=== PATIENT | male | born 1965 | race Caucasian/White ===

== ENCOUNTER 2017-03-30 18:24 | Observation (INO) ==
[2017-03-30] MEDS ORDERED: Ketorolac 15 MG/ML VIAL IM ONE (18:36)
--- NOTE | 2017-03-30 18:40 | Emergency Department Note ---
Disposition Clinical Impression: Epigastric pain, RUQ abdominal pain, Biliary colic Cholelithiasis Qualifiers: Cholelithiasis location: other site Biliary obstruction: without biliary obstruction Qualified Code(s): K80.80 - Other cholelithiasis without obstruction Disposition: Admitted As Inpatient Condition: Good Instructions: Biliary Colic (ED), Abdominal Pain (ED) Referrals: Kennedy Mathews MD [Primary Care Provider] - Julian Thurston MD [Partnered Physician] - Forms: ED Satisfaction Letter, Work/School Release Time of Disposition: 20:06 Abdominal Pain HPI - General Chief Complaint: ED Abdominal Pain Stated Complaint: abd pain Time Seen by Provider: 03/30/17 18:29 Source: patient Mode of arrival: ambulatory Limitations: no limitations Nursing Notes Reviewed: Yes Vital Signs Reviewed: Yes - History of Present Illness HPI Narrative: Patient is a 51-year-old male with past medical history of gallstones, diverticulitis. He presents today due to epigastric and right upper quadrant pain that started about 4 hours prior to arrival. He states that the pain radiates to his back. Admits to nausea, subjective fever and chills, mild sweating. He admits to shortness of breath due to pain. Denies any overt chest pain. He states that he has had similar pain to this with previous biliary colic. He did not take any medication prior to coming in. Pain Scale: 8 - Related Data Home Medications Medication Instructions Recorded Confirmed Dextroamphetamine/Amphetamine 10 mg PO QAM 08/23/16 08/23/16 [Dextroamp-Amphetamin 10 mg Tab] Meloxicam [Meloxicam] 15 mg PO DAILY 08/23/16 08/23/16 Allergies Allergy/AdvReac Type Severity Reaction Status Date / Time No Known Allergies Allergy Verified 03/30/17 18:27 All systems ED: reviewed and negative except as stated. Constitutional: Reports: fever (Subjective), chills Cardiovascular: Denies: chest pain Respiratory: Reports: dyspnea Gastrointestinal: Reports: abdominal pain, nausea. Denies: vomiting, diarrhea, constipation, hematemesis, melena, hematochezia Musculoskeletal: Reports: back pain Neurological: Denies: headache, weakness, numbness, paresthesias Abdominal Pain PMH - Past Medical History Medical history: Reports: other Male Surgical History: Reports: non-contributory Psychiatric history: Reports: ADHD - Social History Smoking status: Never smoker Alcohol use: Reports: none Drug use: Reports: none Physical Exam - General Limitations: no limitations General appearance: alert, other (Appears uncomfortable, holding epigastric area ) - Head Head exam: atraumatic, normocephalic, normal inspection - Eye Eye exam: Present: normal appearance, PERRL, EOMI - ENT ENT exam: normal exam, normal oropharynx, mucous membranes moist - Neck Neck exam: Present: normal inspection, full ROM, trachea midline - Chest Chest inspection: Present: normal inspection, symmetric chest wall rise. Absent : tenderness - Respiratory Respiratory exam: Present: normal lung sounds bilaterally. Absent: respiratory distress, wheezes, stridor - Cardiovascular Cardiovascular exam: Present: regular rate, normal rhythm, normal heart sounds - Abdominal Exam Abdominal exam: Present: soft, tenderness (Mild to moderate tenderness in the epigastric and right upper quadrant regions). Absent: distention, guarding, rebound, rigidity - Extremities Exam Extremities exam: Present: normal inspection, full ROM. Absent: tenderness, pedal edema - Back Exam Back exam: Absent: CVA tenderness (R), CVA tenderness (L) - Neurological Exam Neurological exam: Present: alert, oriented X3 - Psychiatric Psychiatric exam: Present: anxious - Skin Skin exam: Present: warm, dry, intact, normal color Course Course Narrative: Patient hypertensive. Otherwise, the rest of the vitals within normal limits. Physical exam shows mild to moderate tenderness in the epigastric and right upper quadrant areas. He does have a history of biliary colic and diverticulitis. We will give the patient Toradol and morphine for pain control. We will perform basic abdominal labs including LFTs, lipase. We will also obtain CBC, BMP, troponin, chest x-ray, EKG in case this is cardiac in etiology referring pain down to the epigastric region. 19:43 Patient had continued pain despite morphine and toradol, he was given an additional dose of fentanyl and ativan by Dr. Campos. Currently waiting on labs and CT abd pelvis. 20:02 EKG shows NSR with no acute ST changes. white blood cell count 11.4. BMP not concerning. LFTs within normal limits, lipase normal. Urinalysis negative for UTI. Currently waiting on abdominal CT scan results. 20:21 CT scan shows 2.3 cm calcified stone within the gallbladder neck. I spoke with Dr. sinning per request of the patient as he has seen him in the past for biliary colic. Due to no major elevation in WBC, no elevation in LFTs , no fever, he did not feel patient needed acute intervention. He was agreeable to be consult if patient was admitted to medicine for pain control and he will see patient in the afternoon tomorrow for assessment. Chest X-Ray 03/30/17 18:37 IMPRESSION: No acute process. D/ / Elian Lane MD / Elian Lane MD Interpreting Provider: Elian Lane MD Abdomen/Pelvis CT 03/30/17 19:14 IMPRESSION: 2.3 cm calcified stone within the gallbladder neck. Otherwise unremarkable study. D/ / Ila Grady Cha, MD / Ila Grady Cha, MD Interpreting Provider: Ila Grady Cha, MD Chest X-Ray 03/30/17 18:37 IMPRESSION: No acute process. D/ / Elian Lane MD / Elian Lane MD Interpreting Provider: Elian Lane MD Vital Signs Temperature 0 F L 03/30/17 18:25 Pulse Rate 69 03/30/17 18:25 Respiratory Rate 18 03/30/17 18:25 Blood Pressure 166/116 03/30/17 18:25 O2 Sat by Pulse Oximetry 100 03/30/17 18:25 Temperature 97.7 F 03/30/17 19:15 Pulse Rate 77 03/30/17 20:04 Respiratory Rate 16 03/30/17 20:04 Blood Pressure 166/116 03/30/17 18:25 O2 Sat by Pulse Oximetry 97 03/30/17 20:04 Oxygen Delivery Oxygen Delivery Room Air Abdominal Pain - MDM Narrative Medical decision making narrative: Patient hypertensive. Otherwise, the rest of the vitals within normal limits. Physical exam shows mild to moderate tenderness in the epigastric and right upper quadrant areas. He does have a history of biliary colic and diverticulitis. We will give the patient Toradol and morphine for pain control. We will perform basic abdominal labs including LFTs, lipase. We will also obtain CBC, BMP, troponin, chest x-ray, EKG in case this is cardiac in etiology referring pain down to the epigastric region. 19:43 Patient had continued pain despite morphine and toradol, he was given an additional dose of fentanyl and ativan by Dr. Campos. Currently waiting on labs and CT abd pelvis. 20:02 EKG shows NSR with no acute ST changes. white blood cell count 11.4. BMP not concerning. LFTs within normal limits, lipase normal. Urinalysis negative for UTI. Currently waiting on abdominal CT scan results. 20:21 CT scan shows 2.3 cm calcified stone within the gallbladder neck. I spoke with Dr. kan per request of the patient as he has seen him in the past for biliary colic. Due to no major elevation in WBC, no elevation in LFTs , no fever, he did not feel patient needed acute intervention. He was agreeable to be consult if patient was admitted to medicine for pain control and he will see patient in the afternoon tomorrow for assessment. - Medical Records Medical records reviewed: Yes I reviewed the patient's medical records. - Lab Data Lab results reviewed: Yes I reviewed the patient's lab results. Result diagrams: 03/30/17 19:23 03/30/17 19:23 Lab Results 03/30/17 03/30/17 03/30/17 Range/Units 18:37 19:23 19:23 WBC 11.4 H (4.3-11.1) K/mcL RBC 5.41 (4.19-5.50) M/mcL Hgb 15.9 (12.9-16.9) g/dL Hct 45.7 (37.5-50.1) % MCV 84.5 (83.0-100.0) fL MCH 29.4 (28.0-33.3) pg MCHC 34.8 (31.6-35.5) g/dL RDW 12.8 (11.5-14.5) % Plt Count 222 (140-400) K/mcL MPV 10.1 (9.4-12.4) fL Immature Gran % 0.3 (0-4) % Seg Neutrophils % 87.0 % Lymphocytes % 7.2 % Monocytes % 4.9 % Eosinophils % 0.3 % Basophils % 0.3 % Neutrophils # 9.9 H (1.6-8.9) K/mcL Lymphocytes # 0.8 (0.6-4.6) K/mcL Monocytes # 0.6 (0.0-1.3) K/mcL Eosinophils # 0.0 (0.0-0.6) K/mcL Basophils # 0.0 (0.0-0.2) K/mcL PT 11.8 (9.4-12.1) Seconds INR 1.1 APTT 29.4 (26.0-36.0) Seconds Sodium (136-145) mEq/L Potassium (3.5-5.1) mEq/L Chloride (98-107) mEq/L Carbon Dioxide (23-29) mEq/L BUN (6-20) mg/dL Creatinine (0.70-1.30) mg/dL Est GFR ( Amer) (> 60) Est GFR (Non-Af Amer) (> 60) BUN/Creatinine Ratio (6-26) Glucose (70-105) mg/dL Calculated Osmolality (280-300) Calcium (8.6-10.3) mg/dL Total Bilirubin (0.3-1.0) mg/dL Direct Bilirubin (0.0-0.2) mg/dL Indirect Bilirubin (0.0-1.2) mg/dL AST (13-39) Units/L ALT (7-52) Units/L Alkaline Phosphatase (34-104) Units/L Troponin I (< 0.04) ng/mL Serum Total Protein (6.4-8.9) g/dL Albumin (3.5-5.7) g/dL Globulin (2.4-3.5) g/dL Albumin/Globulin Ratio (1.1-2.2) Lipase (11-82) Units/L Urine Color Yellow (Yellow) Urine Clarity Turbid A (Clear) Urine pH 7.5 (5.0-8.0) pH Units Ur Specific [place] 1.028 H (1.010-1.025) Urine Protein Trace (Neg-Trace) mg/dL Urine Glucose (UA) Normal (Normal) mg/dL Urine Ketones Negative (Negative) mg/dL Urine Blood Negative (Negative) Urine Nitrite Negative (Negative) Urine Bilirubin Negative (Negative) Urine Urobilinogen Normal (Normal) mg/dL Ur Leukocyte Esterase Negative (Negative) Urine Microscopic RBC 5-15 H (0-3) per hpf Urine Microscopic WBC 0-3 (0-3) per hpf Ur Squamous Epith Cells Moderate H (None-Few) per lpf Urine Bacteria None Seen (None-Few) per hpf Hyaline Casts None Seen (None-Few) per lpf Ur Culture Indicated? NO (NO) 03/30/17 03/30/17 Range/Units 19:23 19:23 WBC (4.3-11.1) K/mcL RBC (4.19-5.50) M/mcL Hgb (12.9-16.9) g/dL Hct (37.5-50.1) % MCV (83.0-100.0) fL MCH (28.0-33.3) pg MCHC (31.6-35.5) g/dL RDW (11.5-14.5) % Plt Count (140-400) K/mcL MPV (9.4-12.4) fL Immature Gran % (0-4) % Seg Neutrophils % % Lymphocytes % % Monocytes % % Eosinophils % % Basophils % % Neutrophils # (1.6-8.9) K/mcL Lymphocytes # (0.6-4.6) K/mcL Monocytes # (0.0-1.3) K/mcL Eosinophils # (0.0-0.6) K/mcL Basophils # (0.0-0.2) K/mcL PT (9.4-12.1) Seconds INR APTT (26.0-36.0) Seconds Sodium 140 (136-145) mEq/L Potassium 3.4 L (3.5-5.1) mEq/L Chloride 107 (98-107) mEq/L Carbon Dioxide 26 (23-29) mEq/L BUN 19 (6-20) mg/dL Creatinine 0.89 (0.70-1.30) mg/dL Est GFR ( Amer) > 60 (> 60) Est GFR (Non-Af Amer) > 60 (> 60) BUN/Creatinine Ratio 21 (6-26) Glucose 111 H (70-105) mg/dL Calculated Osmolality 293 (280-300) Calcium 9.3 (8.6-10.3) mg/dL Total Bilirubin 0.6 (0.3-1.0) mg/dL Direct Bilirubin 0.1 (0.0-0.2) mg/dL Indirect Bilirubin 0.5 (0.0-1.2) mg/dL AST 17 (13-39) Units/L ALT 26 (7-52) Units/L Alkaline Phosphatase 70 (34-104) Units/L Troponin I < 0.03 (< 0.04) ng/mL Serum Total Protein 6.7 (6.4-8.9) g/dL Albumin 4.1 (3.5-5.7) g/dL Globulin 2.6 (2.4-3.5) g/dL Albumin/Globulin Ratio 1.6 (1.1-2.2) Lipase 43 (11-82) Units/L Urine Color (Yellow) Urine Clarity (Clear) Urine pH (5.0-8.0) pH Units Ur Specific [place] (1.010-1.025) Urine Protein (Neg-Trace) mg/dL Urine Glucose (UA) (Normal) mg/dL Urine Ketones (Negative) mg/dL Urine Blood (Negative) Urine Nitrite (Negative) Urine Bilirubin (Negative) Urine Urobilinogen (Normal) mg/dL Ur Leukocyte Esterase (Negative) Urine Microscopic RBC (0-3) per hpf Urine Microscopic WBC (0-3) per hpf Ur Squamous Epith Cells (None-Few) per lpf Urine Bacteria (None-Few) per hpf Hyaline Casts (None-Few) per lpf Ur Culture Indicated? (NO) - Radiology Data Radiology results reviewed: Yes I reviewed the patient's radiology results. Chest X-Ray 03/30/17 18:37 IMPRESSION: No acute process. D/ / Elian Lane MD / Elian Lane MD Interpreting Provider: Elian Lane MD Abdomen/Pelvis CT 03/30/17 19:14 IMPRESSION: 2.3 cm calcified stone within the gallbladder neck. Otherwise unremarkable study. D/ / Ila Grady Cha, MD / Ila Grady Cha, MD Interpreting Provider: Ila Grady Cha, MD - EKG Data EKG attestation: Yes I reviewed and interpreted this EKG. EKG results narrative: Normal sinus rhythm. Rate 76. [place] 179. QRS 97. QTC 416. Normal axis. No acute ST elevation or depression. There is 1 PVC present on EKG. EKG performed on 03/30/2017 18:48 [facility] Situation: Demographics, MOA Background: Presenting Complaint, Relevant PMH, Meds, & Allergies Assessment: Vital Signs, Course and respsone to treatment, Exam Concerns, Patient/Family Expectation, Pertinant Lab Results, Outstanding Labs Recommendation: Barrier(s) to disposition, Recommendation based on pending studies, treatments, or consults [facility] Report Given to: Dr. Nitish Rosales Repor Time: 21:03 Attestation Statement - Attestation Attestation: I examined this patient and my medical decision-making was reviewed with the Resident Physician. I agree with the documented findings, disposition and treatment plan as described except to the extent set forth below. Possible biliary colic. We will obtain CT scan to evaluate other acute pathologies. We will obtain laboratory analyses. Final disposition pending results of laboratory analyses as well as advanced imaging.
[2017-03-30 18:47] LABS: Bilirubin,Urine Negative (Negative); Blood,Urine Negative (Negative); Clarity,Urine Turbid (Clear); Color,Urine Yellow (Yellow); Glucose,Urine (UA) Normal (Normal); Ketones,Urine Negative (Negative); Leukocyte Esterase,Urine Negative (Negative); Nitrite,Urine Negative (Negative); PH,Urine 7.5 pH Units (5.0-8.0); Protein,Urine Trace mg/dL (Neg-Trace); Specific Gravity,Urine 1.028 (1.010-1.025); Urobilinogen,Urine Normal (Normal)
[2017-03-30 18:49] LABS: Bacteria,Urine None Seen per hpf (None-Few); Hyaline Casts,Urine None Seen per lpf (None-Few); Squamous Epithelial Cell,Urine Moderate per lpf (None-Few); WBC,Urine 0-3 per hpf (0-3)
[2017-03-30] MEDS ORDERED: *HR* Morphine Immed Rel 30 MG TABLET PO ONE (18:59)
[2017-03-30] MEDS ORDERED: *HR* LORazepam 2 MG/ML VIAL IVP ONE (19:23)
[2017-03-30] MEDS ORDERED: *HR* FentaNYL (PF) 100 MCG/2 ML VIAL IVP ONE (19:23)
[2017-03-30 19:30] LABS: Basophils % 0.3 %; Eosinophils % 0.3 %; Hematocrit 45.7 % (37.5-50.1); Hemoglobin 15.9 g/dL (12.9-16.9); Immature Granulocytes % 0.3 % (0-4); Lymphocytes # 0.8 K/mcL (0.6-4.6); Lymphocytes % 7.2 %; Mean Corpuscular HGB Conc 34.8 g/dL (31.6-35.5); Mean Corpuscular Hemoglobin 29.4 pg (28.0-33.3); Mean Corpuscular Volume 84.5 fL (83.0-100.0); Mean Platelet Volume 10.1 fL (9.4-12.4); Monocytes # 0.6 K/mcL (0.0-1.3); Monocytes % 4.9 %; Neutrophils # 9.9 K/mcL (1.6-8.9); Platelet Count 222 K/mcL (140-400); Red Blood Count 5.41 M/mcL (4.19-5.50); Red Cell Distribution Width 12.8 % (11.5-14.5)
[2017-03-30 19:36] LABS: INR 1.1; Prothrombin Time 11.8 Seconds (9.4-12.1)
[2017-03-30 19:38] LABS: Activated Partial Thrombo Time 29.4 Seconds (26.0-36.0)
[2017-03-30 19:46] LABS: Alanine Aminotransferase 26 Units/L (7-52); Albumin 4.1 g/dL (3.5-5.7); Albumin/Globulin Ratio 1.6 (1.1-2.2); Alkaline Phosphatase 70 Units/L (34-104); Aspartate Amino Transferase 17 Units/L (13-39); BUN/Creatinine Ratio 21 (6-26); Bilirubin,Direct 0.1 mg/dL (0.0-0.2); Bilirubin,Indirect 0.5 mg/dL (0.0-1.2); Bilirubin,Total 0.6 mg/dL (0.3-1.0); Blood Urea Nitrogen 19 mg/dL (6-20); Calcium 9.3 mg/dL (8.6-10.3); Carbon Dioxide 26 mEq/L (23-29); Chloride 107 mEq/L (98-107); Globulin 2.6 g/dL (2.4-3.5); Glucose 111 mg/dL (70-105); Lipase 43 Units/L (11-82); Osmolality,Calculated 293 (280-300); Potassium 3.4 mEq/L (3.5-5.1); Sodium 140 mEq/L (136-145); Total Protein 6.7 g/dL (6.4-8.9); eGFR For African Americans > 60 (> 60); eGFR For Non-African Americans > 60 (> 60)
[2017-03-30] MEDS ORDERED: OXYCODONE Oral CONC 10 MG/0.5 ML ORAL.SYG SL PRN (21:42)
[2017-03-30] MEDS ORDERED: Ketorolac 30 MG/ML VIAL IVP PRN (21:42)
[2017-03-30] MEDS ORDERED: 0.9 % Sodium Chloride 1,000 ML IVC SCH (21:45)
[2017-03-31] MEDS ORDERED: traMADol 50 MG TABLET PO PRN (00:26)
[2017-03-31] MEDS ORDERED: Acetaminophen 325 MG TABLET PO PRN (00:26)
[2017-03-31] MEDS ORDERED: *HR* OxyCODONE Immed Rel 5 MG TABLET PO PRN (00:26)
[2017-03-31] MEDS ORDERED: Naloxone 0.4 MG/ML INJ IVP PRN (00:26)
[2017-03-31] MEDS ORDERED: 0.9 % Sodium Chloride 1,000 ML IVC SCH (00:34)
[2017-03-31] MEDS: MetroNIDAZOLE 500 MG/100 ML 500 MG/100 ML BAG IVPB SCH ×2 (00:38→08:47)
--- NOTE | 2017-03-31 01:21 | Internal Med History&Physical ---
<Dez Gamble - Last Filed: 03/31/17 01:30> Date of Encounter: 03/31/17 Time of Encounter: 00:00 Assessment and Plan (1) RUQ abdominal pain Current visit: Yes Status: Acute Known cholelithiasis; does not appear to be obstructing; no apparent cholangitis /choledocholithiasis/cholecystitis LFTs wnl with no evidence of biliary stasis ED assessed for atypical angina which is unlikely given history and ancillary data Dr. Lopez consulted by ED; await further recommendations Control pain and cont IVF/IV-Cipro/Flagyl RUQ U/S pending (2) Cholelithiasis Current visit: Yes Status: Acute No ductal dilatation or signs of cholecystitis/cholangitis 2.3cm stone visualized in GB neck per CT Other plans as above Qualifiers: Cholelithiasis location: gallbladder Biliary obstruction: without biliary obstruction (3) Hypertension Current visit: Yes Status: Chronic Elevated SBP improved with pain control Patient takes HCTZ at home; will hold for now Qualifiers: Hypertension type: unspecified Qualified Code(s): I10 - Essential (primary ) hypertension (4) DVT prophylaxis Current visit: Yes Status: Acute Ambulate TID May consider Rx vs SCDs if stay >24hrs Internal Medicine - H&P: HPI Chief complaint: severe abdominal pain Admitted From: Emergency Dept Plans for Post Hospital Care: Home History of present illness: Mr. Carter is a 51 year old male with known history of cholelithiasis who is admitted via ED for severe abdominal pain. Pain began this AM while at a basketball game after eating a bratwurst and a pretzel. Patient later had lunch after which severity became significantly worse. Pain is 8/10 at max, crampy/sharp in character, radiates to mid back, and appears to worsen with meals. Has had similar episodes in the past, but none this painful. Patient tried to relieve the pain with induced emesis without improvement. Denies fevers, diaphoresis, myalgias, palpitations, chest pain, ongoing shortness of breath, nausea, hematemesis, diarrhea, melena, hematochezia, dysuria, flank pain , hematuria, or testicular pain. Pain was initially difficult to control in ED ultimately improving with Fentanyl. Labs were essentially negative (including CBC/troponin/LFTs/Lipase) except for borderline low potassium. CXR negative. CT abd/pelvis showed non- obstructing 2.3cm stone within the gallbladder neck without any signs of pericholecystic change/inflammation. Patient started on IVF and IV Cipro/ Flagyl. ED spoke with Dr. Lopez who states would see patient as consult. Pain is well controlled on initial encounter. Patient explicitly states FULL CODE status. Past Med Surg Social Fam HX - Past Medical History Attestation: Yes The following information was validated with the patient. Source: patient Medical history: hypertension, other Psychiatric history: ADHD - Past Surgical History Surgical History: other - Social History Smoking Status: Never smoker Alcohol use: none Drug use: none Internal Medicine - H&P: Meds Dextroamphetamine/Amphetamine [Dextroamp-Amphetamin 10 mg Tab] 10 mg PO QAM [History] Meloxicam [Meloxicam] 15 mg PO DAILY 08/23/16 [History] 3 Allergy/AdvReac Type Severity Reaction Status Date / Time No Known Allergies Allergy Verified 03/30/17 18:27 All Systems PM: A 10-system review of systems was performed and is negative for pertinent findings except as documented above in the HPI. - Constitutional Vitals: Temp Pulse Resp BP Pulse Ox 98.4 F 88 16 141/97 94 03/30/17 22:36 03/30/17 22:36 03/30/17 22:36 03/30/17 22:36 03/30/17 22:36 Exam: CONSTITUTIONAL: Alert and oriented X3, well-nourished, well appearing, in no apparent distress HEAD: Normocephalic; atraumatic. EYES: PERRL, no scleral icterus, no drainage, no conjunctival injection NOSE: The nose is normal in appearance without rhinorrhea Oropharynx: pink/moist, no tonsillar edema/erythema/exudates RESP: NRD without use of accessory musculature, CTA b/l with no wheezes/rales/ rhonchi CARD: Regular rhythm, without murmurs, rubs, or gallop ABD: grossly normal, soft, mild tenderness to RUQ with negative Laguerre sign; no peritoneal signs; no rebound/rigidity/guarding/distention SKIN: normal appearance, no pallor/diaphoresis,mottling,jaundice,cyanosis EXT: DP/Rad pulses 2+ and symmetrical; no lateralizing edema; no other lesions seen PSYCH: appropriate mood/affect Internal Med - H&P Results - Labs CBC & Chem 7: 03/30/17 19:23 03/30/17 19:23 <Christian Talbert - Last Filed: 03/31/17 05:35> Date of Encounter: 03/31/17 Internal Medicine - H&P: HPI History of present illness: Mr. Carter is a 51 year old male All Systems PM: A 10-system review of systems was performed and is negative for pertinent findings except as documented above in the HPI. - Constitutional Vitals: Temp Pulse Resp BP Pulse Ox 97.9 F 79 15 151/79 98 03/31/17 05:02 03/31/17 05:02 03/31/17 05:02 03/31/17 05:02 03/31/17 05:02 Internal Med - H&P Results - Labs CBC & Chem 7: 03/30/17 19:23 03/30/17 19:23 - Attending Attestation I have seen and examined this pt independently. I have discussed with Resident physician Dr Gamble regarding the management plan. Agree with the documentation. Will give cipro and flagyl for possible early cholecystitis considering persist pain and elevated WBC.
[2017-03-31 06:05] LABS: Basophils % 0.5 %; Eosinophils # 0.1 K/mcL (0.0-0.6); Eosinophils % 1.7 %; Hemoglobin 14.8 g/dL (12.9-16.9); Immature Granulocytes % 0.3 % (0-4); Lymphocytes # 1.7 K/mcL (0.6-4.6); Lymphocytes % 22.2 %; Mean Corpuscular HGB Conc 33.6 g/dL (31.6-35.5); Mean Corpuscular Hemoglobin 28.9 pg (28.0-33.3); Mean Corpuscular Volume 85.9 fL (83.0-100.0); Mean Platelet Volume 10.5 fL (9.4-12.4); Monocytes # 0.7 K/mcL (0.0-1.3); Monocytes % 9.8 %; Platelet Count 164 K/mcL (140-400); Red Blood Count 5.12 M/mcL (4.19-5.50); Red Cell Distribution Width 12.8 % (11.5-14.5); Segmented Neutrophils % 65.5 %
[2017-03-31 06:51] LABS: Alanine Aminotransferase 22 Units/L (7-52); Albumin 3.5 g/dL (3.5-5.7); Albumin/Globulin Ratio 1.5 (1.1-2.2); Alkaline Phosphatase 56 Units/L (34-104); Aspartate Amino Transferase 17 Units/L (13-39); BUN/Creatinine Ratio 26 (6-26); Bilirubin,Total 0.7 mg/dL (0.3-1.0); Blood Urea Nitrogen 16 mg/dL (6-20); Calcium 8.3 mg/dL (8.6-10.3); Carbon Dioxide 25 mEq/L (23-29); Chloride 109 mEq/L (98-107); Globulin 2.3 g/dL (2.4-3.5); Glucose 96 mg/dL (70-105); Magnesium 2.1 mg/dL (1.6-2.6); Osmolality,Calculated 289 (280-300); Potassium 3.7 mEq/L (3.5-5.1); Sodium 139 mEq/L (136-145); Total Protein 5.8 g/dL (6.4-8.9); eGFR For African Americans > 60 (> 60); eGFR For Non-African Americans > 60 (> 60)
[2017-03-31 10:50] VITALS: BP 141/91
--- NOTE | 2017-03-31 13:03 | General Surgery Consult Note ---
Date of Encounter: 03/31/17 Time of Encounter: 12:30 History of Present Illness Consult date: 03/30/17 Reason for consult: gallstones Requesting physician: Jack Alcantar History of present illness: 51 yo, referred to [facility] at the request of the patient after presenting to [facility] ED with abrupt onset epigastric and right upper quadrant pain. This was not accompanied by any N/V, fever, chills, or jaundice. Patient with known history cholelithiasis with severe episode biliary colic approx 6 years agol. The patient denies any significant episodes abd pain since that acute episode in 2010 til now. On presentation to the emergency department the patient was in acute distress and somewhat diaphoretic, most likely due to the abdominal pain, but remained hemodynamically stable and afebrile. Labs were notable for a mild leukocytosis of 11.4 (upper limits of normal 11.1) hemoglobin 15.9, hematocrit 45.7, platelet count 220,000. Neutrophils were mildly elevated at 9.9% (upper limits of normal 8.9%). Electrodes were notable for potassium 3.4, LFTs were within normal limits. Troponin less than 0.03. The patient required considerable medication on an initial presentation to control his pain but since then his pain has abated. On my presentation to the bedside; patient is afebrile, in no acute distress, skin is warm, dry, without obvious jaundice. Abdomen is completely benign and nontender. Past medical history: ADHD, hypertension, obesity; known history of cholelithiasis Allergies: No known drug allergies Medications: Dextroamphetamine (Adderall) 10 mg by mouth every morning Meloxicam 15 mg by mouth daily for knee pain Hydrochlorothiazide dose not specified, one daily Social history: The patient is ; he does not smoke; he admits to an occasional alcoholic beverage. Does not consume illicit drugs. 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 He is 1.8 m tall, 146.1 kg; BMI 44.9. The patient has been afebrile since admission; currently 98.1, pulse 75, respirations 14, blood pressure 141/91 Skin: Warm, no obvious jaundice Cardiac: Regular rate, no appreciable murmurs Pulmonary: Lungs are clear bilaterally; no obvious abdominal pain on deep inspiration Abdomen: Obese, soft, nontender. No appreciable organomegaly. No obvious rebound. Active bowel sounds. Extremities: No obvious clubbing, cyanosis, or edema. Laboratories (repeated this morning) - resolution of the leukocytosis; white count 7.6. Hemoglobin 14.8, hematocrit 44.0, platelet count 164,000. Neutrophilia has also resolved - 5.0 Electrolytes demonstrate correction of the hypokalemia; potassium 3.7. Repeat LFTs remain within normal limits. Lipase is not elevated. CT abdomen and pelvis and Ultrasound gallbladder: were personally reviewed with [facility] Findings include: A 2.3 cm calcified stone within the gallbladder neck without intra-or extrahepatic biliary duct dilatation, no pericholecystic fluid, Wall thickening or sonographic Laguerre sign. The rest of the abdomen and pelvis were unremarkable. Impression: 51-year-old male with acute biliary colic related to known history of cholelithiasis. The severe pain with which the patient presented has resolved. Cholecystectomy has been recommended but the patient does not wish to proceed today. He wishes to be discharged to arrange outpatient surgery. This will allow him to address his business and personal needs prior to scheduling surgery. The patient is aware that if he presents in acute distress, There is a greater risk of open cholecystectomy versus laparoscopic cholecystectomy. Risks of cholecystectomy including hemorrhage, infection, Intra-abdominal abscess, bile leak, injury to adjacent ducts, vessels, organs , and bowel. In the emergency setting these risks are elevated. The patient expressed understanding but wishes to defer surgery at the present time. I have discussed this with the admitting service, Dr Hernandez. The patient will follow with me as an outpatient. Past Med Surg Social Fam HX - Past Medical History Medical history: hypertension, other Psychiatric history: ADHD - Past Surgical History Surgical History: other - Social History Smoking Status: Never smoker Alcohol use: none Drug use: none Medications and Allergies Dextroamphetamine/Amphetamine [Dextroamp-Amphetamin 10 mg Tab] 10 mg PO QAM [History] Meloxicam [Meloxicam] 15 mg PO DAILY 08/23/16 [History] hydroCHLOROthiazide [Hydrochlorothiazide] 25 mg PO DAILY 03/31/17 [History] 3 Allergy/AdvReac Type Severity Reaction Status Date / Time No Known Allergies Allergy Verified 03/30/17 18:27 Review of Systems All systems PM: A 10-system review of systems was performed and is negative for pertinent findings except as documented above in the HPI. General Surgery Exam Initial Vital Signs Temp Pulse Resp BP Pulse Ox 0 F L 69 18 166/116 100 03/30/17 18:25 03/30/17 18:25 03/30/17 18:25 03/30/17 18:25 03/30/17 18:25 Exam Initial Vital Signs Temp Pulse Resp BP Pulse Ox 0 F L 69 18 166/116 100 03/30/17 18:25 03/30/17 18:25 03/30/17 18:25 03/30/17 18:25 03/30/17 18:25 Results - Labs 03/31/17 05:32 03/31/17 05:32 Abnormal lab results Chloride 109 mEq/L (98-107) H 03/31/17 05:32 Creatinine 0.62 mg/dL (0.70-1.30) L 03/31/17 05:32 Calcium 8.3 mg/dL (8.6-10.3) L 03/31/17 05:32 Serum Total Protein 5.8 g/dL (6.4-8.9) L 03/31/17 05:32 Globulin 2.3 g/dL (2.4-3.5) L 03/31/17 05:32 Urine Clarity Turbid (Clear) A 03/30/17 18:37 Ur Specific [place] 1.028 (1.010-1.025) H 03/30/17 18:37 Urine Microscopic RBC 5-15 per hpf (0-3) H 03/30/17 18:37 Ur Squamous Epith Cells Moderate per lpf (None-Few) H 03/30/17 18:37 All other labs normal. Consult Discharge Plan - Plan Referrals: Kennedy Mathews MD [Primary Care Provider] -
--- NOTE | 2017-03-31 13:27 | Discharge Summary ---
Date of Encounter: 03/31/17 Time of Encounter: 13:25 - Discharge Diagnosis (1) Biliary colic Priority: Primary Status: Acute (2) Cholelithiasis Priority: Secondary Status: Acute Qualifiers: Cholelithiasis location: gallbladder Cholecystitis presence: without cholecystitis Biliary obstruction: without biliary obstruction Qualified Code(s): K80.20 - Calculus of gallbladder without cholecystitis without obstruction (3) RUQ abdominal pain Priority: Secondary Status: Acute (4) Hypertension Priority: Secondary Status: Chronic Qualifiers: Hypertension type: unspecified Qualified Code(s): I10 - Essential (primary ) hypertension - Discharge Medications Home Medications: Dextroamphetamine/Amphetamine [Dextroamp-Amphetamin 10 mg Tab] 10 mg PO QAM [History] Meloxicam 15 mg PO DAILY 08/23/16 [History] hydroCHLOROthiazide [Hydrochlorothiazide] 25 mg PO DAILY 03/31/17 [History] Allergies/Adverse Reactions: 3 Allergy/AdvReac Type Severity Reaction Status Date / Time No Known Allergies Allergy Verified 03/30/17 18:27 Date of admission: 03/31/17 05:35 Primary care physician: Kennedy Mathews MD Discharging clinician: Yaimni Hernandez - Patient Status Disposition: Home, Self-Care Condition: Good Functional capacity at discharge: independent ambulation Overall status at discharge: patient is back to baseline - Discharge Instructions Follow Up With: Kennedy Mathews MD [Primary Care Provider] - - Diet and Activity Activity: increase activity as tolerated Diet: advance to your usual diet, low fat, low cholesterol Hospital course: Mr. Carter is a 51 year old male with known history of cholelithiasis who is admitted via ED for severe abdominal pain. Pain began this AM while at a basketball game after eating a bratwurst and a pretzel. Patient later had lunch after which severity became significantly worse. Pain is 8/10 at max, crampy/sharp in character, radiates to mid back, and appears to worsen with meals. Has had similar episodes in the past, but none this painful. Patient tried to relieve the pain with induced emesis without improvement. Denies fevers, diaphoresis, myalgias, palpitations, chest pain, ongoing shortness of breath, nausea, hematemesis, diarrhea, melena, hematochezia, dysuria, flank pain , hematuria, or testicular pain. Pain was initially difficult to control in ED ultimately improving with Fentanyl. Labs were essentially negative (including CBC/troponin/LFTs/Lipase) except for borderline low potassium. CXR negative. CT abd/pelvis showed non-obstructing 2.3cm stone within the gallbladder neck without any signs of pericholecystic change/inflammation. Patient started on IVF and IV Cipro/Flagyl. ED spoke with Dr. Lopez who states would see patient as consult. Leukocytosis resolved, likely was stress reaction. He evaluated patient and patient did not wish to proceed during this admission. He was willing to do outpatient follow-up with Surgery in a few weeks to later explore surgical options. He was discharged home in stable condition. - Time Spent with Patient Total time spent providing and/or coordinating discharge services: - Constitutional Vitals: Temp Pulse Resp BP Pulse Ox 98.1 F 75 14 141/91 97 03/31/17 10:45 03/31/17 10:45 03/31/17 10:45 03/31/17 10:45 03/31/17 06:52 - Head Head exam: Present: atraumatic, normocephalic - Eye Eye exam: Present: PERRL, conjuntiva pink, sclera anicteric Pupils: Present: PERRL - Neck Neck exam general surgery: Present: supple, trachea midline. Absent: lymphadenopathy - Respiratory Respiratory exam: Present: CTAB. Absent: accessory muscle use, rales, rhonchi, wheezes - Cardiovascular Cardiovascular exam: Present: RRR, +S1, +S2. Absent: diastolic murmur, gallop, rubs, systolic murmur - GI/Abdominal GI/Abdominal exam: Present: normal bowel sounds, soft, no peritoneal signs. Absent: distended, tenderness - Extremities Exam Extremities exam: Present: warm, radial pulses palpable and symmetrical. Absent : calf tenderness, cyanotic, pedal edema - Neurological Exam Neurological exam: Present: CN II-XII intact, oriented X3, no focal deficits. Absent: pronater drift, facial droop, speech deficit - Skin Skin exam: Present: dry, intact
--- NOTE | 2017-03-31 17:11 | Electrocardiograph Report ---
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
== END 2017-03-31 13:49 | disposition home or self-care (01) | DRG 445 ==
LOC: EMEROO 18:24 → 3ANU 18:24 → SUATTDRO 03-31 05:35
PROVIDERS: ADMIT Internal Medicine; ATTEND Internal Medicine